=== PATIENT | female | born 1985 ===

== ENCOUNTER 2024-01-20 13:02 | Emergency (ER) | payer OTHER ==
[~2024-01-20] VITALS: Ht 157.5 cm; Wt 63.6 kg
[2024-01-20 13:08] VITALS: BP 134/84; PULSE 70; RESP 18; TEMP 98.2
[2024-01-20] MEDS: LIDOCAINE 1% 10 ML VIAL ID ONE (17:29)
== END 2024-01-20 19:05 | disposition home or self-care (01) ==
LOC: EMS 13:02
DX: S81.811A Laceration without foreign body, right lower leg, initial encounter (principal); Z98.890 Other specified postprocedural states; Z88.0 Allergy status to penicillin; W25.XXXA Contact with sharp glass, initial encounter; Y93.89 Activity, other specified; Y92.89 Other specified places as the place of occurrence of the external cause; Y99.8 Other external cause status
CPT/HCPCS: 99282; 12002; J3490